=== PATIENT | male | born 1945 | race African-American/Black ===

== ENCOUNTER 2025-01-24 09:20 | Inpatient (IN) | payer OTHER, MEDICARE ==
[~2025-01-24] VITALS: Ht 193 cm; Wt 99.8 kg
[2025-01-24] VITALS (73 sets, daily range): BP systolic 46–121; BP diastolic 24–86; PULSE 53–116; RESP 11–48; TEMP 35.6–36.7; O2SAT 67–100
[2025-01-24 09:56] LABS: HEMATOCRIT. 30.1 % (42.0-52.0); HEMOGLOBIN. 9.6 g/dL (14.0-18.0); MEAN CORPUSCULAR VOLUME 100.2 fL (80.0-94.0); MEAN PLATELET VOLUME 8.6 fl (7.4-10.4); PLATELET 109 x1000/uL (130-400); RED BLOOD CELL COUNT 3.01 mill/uL (4.7-6.1); RED CELL DISTRIBUTION WIDTH 22.3 % (11.6-14.6)
[2025-01-24] MEDS ORDERED: INSULIN GLARGINE 100 UNITS/ML SUBCUT SCH (10:00)
[2025-01-24] MEDS: PIPERACILLIN/TAZO 3.375G/50ML 50 ML IV ONE (10:06)
[2025-01-24] MEDS: SODIUM CHLORIDE 0.9% (SEPSIS BOLUS) IV ONE (10:06)
[2025-01-24 10:12] LABS: DIFFERENTIAL COMMENT 1
[2025-01-24 10:13] LABS: CARBON DIOXIDE 21 mEq/L (21-32); CHLORIDE 97 mEq/L (98-107); POTASSIUM 3.5 mEq/L (3.5-5.1); SODIUM 138 mEq/L (136-145)
[2025-01-24 10:14] LABS: CALCIUM 8.4 mg/dL (8.7-10.4); INR 1.5; PROTHROMBIN TIME 15.6 sec (9.6-11.0)
[2025-01-24 10:18] LABS: CREATININE 2.3 mg/dL (0.6-1.3)
[2025-01-24 10:19] LABS: GLUCOSE 114 mg/dL (70-105); UREA NITROGEN BLOOD 25 mg/dL (9-23)
[2025-01-24 10:20] LABS: ALBUMIN 3.3 g/dL (3.2-4.8)
[2025-01-24 10:21] LABS: ALANINE AMINOTRANSFERASE 14 IU/L (10-49); ASPARTATE AMINOTRANSFERASE 19 IU/L (<34); BILIRUBIN DIRECT 1.4 mg/dL (<=3.0); BILIRUBIN TOTAL 2.9 mg/dL (0.1-1.0)
[2025-01-24 10:27] LABS: LACTIC ACID 9.3 mmol/L (0.4-2.0)
[2025-01-24 10:31] LABS: TROPONIN I HIGH SENSITIVITY 136 ng/L (3.0-53)
[2025-01-24 10:58] LABS: NUCLEATED RED BLOOD CELLS 26 /100 WBC
[2025-01-24 10:59] LABS: ANISOCYTOSIS 2+; PLATELET ESTIMATE DECREASED
[2025-01-24 11:00] LABS: HYPOCHROMASIA 1+
[2025-01-24] MEDS: VANCOMYCIN 1G PREMIX 200 ML IV ONE (11:10)
[2025-01-24] MEDS ORDERED: ETOMIDATE 2MG/ML 10ML VIAL IV ONE (12:57)
[2025-01-24] MEDS ORDERED: IPRATROPIUM/ALBUTEROL 0.5-3(2.5)MG/3ML NEB HHN PRN (13:00)
[2025-01-24] MEDS ORDERED: HYDROCODONE/ACETAMINOPHEN 5/325MG TABLET PO PRN (13:00)
[2025-01-24] MEDS ORDERED: ACETAMINOPHEN 325MG TABLET PO PRN ×2 (13:00)
[2025-01-24] MEDS ORDERED: GUAIFENESIN 200MG/10ML SUGAR FREE UDC PO PRN (13:00)
[2025-01-24] MEDS ORDERED: MAGNESIUM/ALUMINUM HYDROXIDE/SIMETHICONE 30ML UDC PO PRN (13:00)
[2025-01-24] MEDS ORDERED: DOCUSATE SODIUM 100MG CAPSULE PO PRN (13:00)
[2025-01-24] MEDS ORDERED: CLONIDINE 0.1MG TABLET PO PRN (13:00)
[2025-01-24] MEDS ORDERED: ONDANSETRON HCL 4MG/2ML INJ IV PRN (13:00)
[2025-01-24] MEDS ORDERED: MORPHINE SULFATE 2 MG/ML INJ (NOT FOR IM USE) IV PRN (13:00)
[2025-01-24 13:26] LABS: TROPONIN I HIGH SENSITIVITY 146 ng/L (3.0-53)
[2025-01-24] MEDS ORDERED: NALOXONE HCL 0.4MG/ML VIAL IV PRN (13:30)
[2025-01-24] MEDS ORDERED: ASPIRIN 325MG EC TABLET PO ONE (13:30)
[2025-01-24] MEDS ORDERED: LIDOCAINE HCL 1% 10 MG/ML 10ML VIAL ONE (13:41)
[2025-01-24] MEDS: ASPIRIN 325MG TABLET PO NR (13:45)
[2025-01-24] MEDS: VANCOMYCIN 1GM/200ML PMX (BAXTER) IV NR (14:00)
[2025-01-24] MEDS: HYDRALAZINE 20MG/ML VIAL IV NR (14:00)
[2025-01-24] MEDS: HYDRALAZINE HCL 50MG TABLET PO SCH (14:00)
[2025-01-24] MEDS ORDERED: NOREPINEPHRINE 8 MG in DEXT 5% WATER 242 ML IV PRN (15:00)
[2025-01-24] MEDS: NOREPINEPHRINE 8MG/250ML PMX 250 ML IV PRN (15:10)
[2025-01-24 16:15] LABS: BG BASE EXCESS -15.8 mmol/L (-2.0-3.0); BG CARBOXYHEMOGLOBIN 0.4 % (0.5-1.5); BG DEOXYHEMOGLOBIN 3.2 % (0.0-5.0); BG FRACTION INSPIRED OXYGEN 100; BG METHEMOGLOBIN 0.2 % (0.5-1.5); BG OXYGEN SATURATION 96.8 % (94.0-98.0); BG OXYHEMOGLOBIN 96.2 % (94.0-98.0); BG PCO2 24.1 mmHg (35.0-48.0); BG PH 7.236 (7.350-7.450); BG PO2 105.8 mmHg (83.0-108.0); BG SAMPLE SITE LEFT RADIAL; BG VENT MODE MASK - NRB
[2025-01-24] MEDS: BLOOD SUGAR DIAGNOSTIC STRIP TEST SCH (16:30)
[2025-01-24] MEDS: INSULIN LISPRO 100 UNITS/ML SUBCUT SCH ×2 (16:30→20:03)
[2025-01-24] MEDS: NOREPINEPHRINE 8MG/250ML PMX 250ML IV PRN (16:33)
[2025-01-24] MEDS: FUROSEMIDE 40MG/4ML VIAL IV SCH (17:15)
[2025-01-24] MEDS ORDERED: MIDAZOLAM HCL 100 MG in SODIUM CHLORIDE 0.9% 80 ML IV PRN (17:15)
[2025-01-24] MEDS ORDERED: PROPOFOL 10MG/ML 100ML 100 ML IV PRN (17:30)
[2025-01-24] MEDS: PROPOFOL 10MG/ML 100ML 100 ML IV PRN (17:46)
[2025-01-24] MEDS: NOREPINEPHRINE 32 MG in DEXT 5% WATER 218 ML IV PRN (18:10)
[2025-01-24] MEDS: PHENYLEPHRINE 100 MG in DEXT 5% WATER 240 ML IV PRN (18:19)
[2025-01-24] MEDS: DEXTROSE 50% WATER 50ML SYRINGE IV PRN (18:28)
[2025-01-24] MEDS: VASOPRESSIN 20 UNIT in SODIUM CHLORIDE 0.9% 99 ML IV PRN (18:30)
[2025-01-24] MEDS: EPINEPHRINE 10 MG in SODIUM CHLORIDE 0.9% 240 ML IV PRN (18:55)
[2025-01-24 18:58] LABS: BG CARBOXYHEMOGLOBIN 0.8 % (0.5-1.5); BG FRACTION INSPIRED OXYGEN 100; BG HCO3 ACT 8.3 mmol/L (21.0-28.0); BG METHEMOGLOBIN 0.1 % (0.5-1.5); BG OXYGEN SATURATION 87.9 % (94.0-98.0); BG OXYHEMOGLOBIN 87.1 % (94.0-98.0); BG PCO2 42.8 mmHg (35.0-48.0); BG PH 6.905 (7.350-7.450); BG PO2 83.3 mmHg (83.0-108.0); BG SAMPLE SITE LEFT RADIAL; BG TOTAL HEMOGLOBIN 11.9 g/dL (13.5-17.5); BG VENT MODE VENT - AC
[2025-01-24] MEDS: SODIUM BICARBONATE 8.4% 50MEQ/50ML SYR IV NR ×2 (19:10→20:57)
[2025-01-24 19:12] LABS: CREATINE KINASE MB FRACTION 9.6 ng/mL (0.5-3.6)
[2025-01-24 19:23] LABS: ALANINE AMINOTRANSFERASE 69 IU/L (10-49); ALBUMIN 3.4 g/dL (3.2-4.8); ASPARTATE AMINOTRANSFERASE 165 IU/L (<34); BILIRUBIN DIRECT 1.6 mg/dL (<=3.0); BILIRUBIN TOTAL 2.9 mg/dL (0.1-1.0); CREATINE KINASE 687 IU/L (46-171); IRON 26 ug/dL (65-175); PHOSPHORUS 4.7 mg/dL (2.5-4.9)
[2025-01-24 19:24] LABS: PROTEIN TOTAL 5.5 g/dL (6.0-8.3)
[2025-01-24 19:26] LABS: TOTAL IRON BINDING CAPACITY 578 ug/dl (250-425)
[2025-01-24 19:36] LABS: TROPONIN I HIGH SENSITIVITY 273 ng/L (3.0-53)
[2025-01-24 19:49] LABS: FERRITIN 787 ng/mL (22-322)
[2025-01-24 19:50] LABS: FOLIC ACID (FOLATE) SERUM > 20.00 ng/mL (>5.38)
[2025-01-24 20:03] LABS: HEPATITIS B SURFACE ANTIGEN NEGATIVE (Negative)
[2025-01-24 20:23] LABS: HEPATITIS A AB IGM NEGATIVE (Negative)
[2025-01-24 20:24] LABS: HEPATITIS B CORE AB IGM NEGATIVE (Negative); HEPATITIS C AB NON REACTIVE (Neg) (Negative)
[2025-01-24 20:26] LABS: BG BASE EXCESS -22.4 mmol/L (-2.0-3.0); BG CARBOXYHEMOGLOBIN 0.8 % (0.5-1.5); BG DEOXYHEMOGLOBIN 51.7 % (0.0-5.0); BG FRACTION INSPIRED OXYGEN 100; BG HCO3 ACT 10.3 mmol/L (21.0-28.0); BG METHEMOGLOBIN 0.3 % (0.5-1.5); BG OXYGEN SATURATION 47.7 % (94.0-98.0); BG OXYHEMOGLOBIN 47.2 % (94.0-98.0); BG PCO2 56.2 mmHg (35.0-48.0); BG PH 6.883 (7.350-7.450); BG PO2 42.7 mmHg (83.0-108.0); BG TOTAL HEMOGLOBIN 10.9 g/dL (13.5-17.5); BG VENT MODE VENT - AC
[2025-01-24] MEDS ORDERED: DEXTROSE 10% IV SCH (20:30)
[2025-01-24] MEDS ORDERED: WATER IV SCH (20:30)
[2025-01-24] MEDS ORDERED: SODIUM BICARBONATE IV SCH (20:30)
[2025-01-24] MEDS ORDERED: DEXT 10% WATER 1,000 ML IV SCH (20:30)
[2025-01-24] MEDS: SODIUM BICARBONATE 8.4% 50MEQ/50ML SYR IV ONE (20:38)
[2025-01-24 20:48] LABS: VITAMIN B12 SERUM > 2000 pg/mL (211-911)
[2025-01-24] MEDS ORDERED: SACUBITRIL/VALSARTAN 24MG/26MG TABLET PO SCH (21:00)
[2025-01-24] MEDS ORDERED: METOPROLOL TARTRATE 25MG TABLET PO SCH (21:00)
[2025-01-24] MEDS ORDERED: APIXABAN 5 MG TABLET PO SCH (21:00)
[2025-01-24] MEDS: DOPAMINE 800MG PREMIX (DOUBLE) 250 ML IV PRN (21:15)
[2025-01-24] MEDS: SODIUM BICARBONATE 150 MEQ in DEXTROSE 5% WATER 850 ML IV SCH (21:51)
[2025-01-24] MEDS ORDERED: CEFEPIME 2 GM/50 ML IV SCH (22:00)
[2025-01-24] MEDS: EPINEPHRINE 20 MG in SODIUM CHLORIDE 0.9% 480 ML IV PRN (22:09)
[2025-01-24] MEDS: ATORVASTATIN CALCIUM 40MG TABLET PO SCH (22:10)
[2025-01-24 22:36] LABS: TROPONIN I HIGH SENSITIVITY 402 ng/L (3.0-53)
[2025-01-24] MEDS: IPRATROPIUM/ALBUTEROL 0.5-3(2.5)MG/3ML NEB NEB SCH (22:42)
[2025-01-25] VITALS (48 sets, daily range): BP systolic 32–93; BP diastolic 14–64; PULSE 0–60; RESP 17–32; TEMP 34.4–36.4; O2SAT 41–100
[2025-01-25] MEDS: INSULIN LISPRO 100 UNITS/ML SUBCUT SCH
[2025-01-25] MEDS: DEXT 10% WATER 1,000 ML IV SCH (00:26)
[2025-01-25] MEDS: BLOOD SUGAR DIAGNOSTIC STRIP TEST SCH (00:27)
[2025-01-25 00:47] LABS: BG CARBOXYHEMOGLOBIN 0.6 % (0.5-1.5); BG DEOXYHEMOGLOBIN 6.6 % (0.0-5.0); BG FRACTION INSPIRED OXYGEN 100; BG HCO3 ACT 7.9 mmol/L (21.0-28.0); BG METHEMOGLOBIN 0.1 % (0.5-1.5); BG OXYGEN SATURATION 93.4 % (94.0-98.0); BG OXYHEMOGLOBIN 92.7 % (94.0-98.0); BG PCO2 39.8 mmHg (35.0-48.0); BG PH 6.914 (7.350-7.450); BG PO2 97.6 mmHg (83.0-108.0); BG SAMPLE SITE RIGHT FEMORAL; BG TOTAL HEMOGLOBIN 11.1 g/dL (13.5-17.5); BG TOTAL RESPIRATORY RATE 25 b/min; BG VENT MODE VENT - AC
[2025-01-25] MEDS: SODIUM BICARBONATE 8.4% 50MEQ/50ML SYR IV NR (01:47)
[2025-01-25] MEDS: DOBUTAMINE 500MG PREMIX 250 ML IV PRN (01:49)
[2025-01-25] MEDS ORDERED: CEFEPIME 2GM/50ML DUPLEX 50 ML IV SCH (02:00)
[2025-01-25] MEDS: CEFEPIME 2GM/50ML DUPLEX 50 ML IV SCH (03:15)
[2025-01-25 07:04] LABS: BG BASE EXCESS -24.2 mmol/L (-2.0-3.0); BG CARBOXYHEMOGLOBIN 0.3 % (0.5-1.5); BG DEOXYHEMOGLOBIN 13.2 % (0.0-5.0); BG FRACTION INSPIRED OXYGEN 100; BG HCO3 ACT 7.7 mmol/L (21.0-28.0); BG METHEMOGLOBIN 0.1 % (0.5-1.5); BG OXYGEN SATURATION 86.7 % (94.0-98.0); BG OXYHEMOGLOBIN 86.4 % (94.0-98.0); BG PCO2 40.6 mmHg (35.0-48.0); BG PH 6.897 (7.350-7.450); BG PO2 73.7 mmHg (83.0-108.0); BG SAMPLE SITE RIGHT FEMORAL; BG TOTAL HEMOGLOBIN 10.2 g/dL (13.5-17.5); BG VENT MODE VENT - AC
[2025-01-25] MEDS ORDERED: EMPAGLIFLOZIN 10MG TABLET PO SCH (09:00)
[2025-01-25] MEDS ORDERED: CEFEPIME 1GM IN DEXT 5% 50ML IV SCH (09:00)
[2025-01-25] MEDS ORDERED: ASPIRIN 81MG EC TABLET PO SCH (09:00)
[2025-01-25] MEDS ORDERED: AMIODARONE 200MG TABLET PO SCH (09:00)
[2025-01-25] MEDS ORDERED: SPIRONOLACTONE 12.5MG TABLET PO SCH (09:00)
[2025-01-26] MEDS ORDERED: VANCOMYCIN 1.5GM/250ML IV SCH (15:00)
== END 2025-01-25 08:30 | DRG 871 ==
LOC: ER 09:20 → MICUSO 12:25 → EDBEDREQTM 12:32 → EDBEDREQ 12:32 → EDBEDREQSVC 15:25
PROVIDERS: ADMIT Hospitalist; ATTEND Hospitalist
PROC: 0BH17EZ Insertion of Endotracheal Airway into Trachea, Via Natural or Artificial Opening (ICD-10-PCS; principal; 2025-01-24)
PROC: 5A1935Z Respiratory Ventilation, Less than 24 Consecutive Hours (ICD-10-PCS; 2025-01-24)
PROC: 05H633Z Insertion of Infusion Device into Left Subclavian Vein, Percutaneous Approach (ICD-10-PCS; 2025-01-24)
PROC: B547ZZA Ultrasonography of Left Subclavian Vein, Guidance (ICD-10-PCS; 2025-01-24)
DX: A41.9 Sepsis, unspecified organism (principal); G93.41 Metabolic encephalopathy; J96.01 Acute respiratory failure with hypoxia; R65.21 Severe sepsis with septic shock; I21.4 Non-ST elevation (NSTEMI) myocardial infarction; N18.4 Chronic kidney disease, stage 4 (severe); I13.0 Hypertensive heart and chronic kidney disease with heart failure and stage 1 through stage 4 chronic kidney disease, or unspecified chronic kidney disease; C95.90 Leukemia, unspecified not having achieved remission; G45.9 Transient cerebral ischemic attack, unspecified; I48.20 Chronic atrial fibrillation, unspecified; N17.9 Acute kidney failure, unspecified; D61.818 Other pancytopenia; E46 Unspecified protein-calorie malnutrition; E87.21 Acute metabolic acidosis; I43 Cardiomyopathy in diseases classified elsewhere; K92.0 Hematemesis; C90.00 Multiple myeloma not having achieved remission; E11.22 Type 2 diabetes mellitus with diabetic chronic kidney disease; E83.51 Hypocalcemia; Z66 Do not resuscitate; I46.9 Cardiac arrest, cause unspecified; E80.6 Other disorders of bilirubin metabolism; I50.9 Heart failure, unspecified; E87.8 Other disorders of electrolyte and fluid balance, not elsewhere classified; I25.10 Atherosclerotic heart disease of native coronary artery without angina pectoris; Z79.01 Long term (current) use of anticoagulants; I25.2 Old myocardial infarction; Z79.4 Long term (current) use of insulin; Z79.82 Long term (current) use of aspirin; Z79.84 Long term (current) use of oral hypoglycemic drugs; Z79.899 Other long term (current) drug therapy; Z91.85 Personal history of military service; Z92.21 Personal history of antineoplastic chemotherapy; Z68.30 Body mass index [BMI] 30.0-30.9, adult
CPT/HCPCS: 31720; 36415; 36573; 36600; 71045; 76770; 80048; 80076; 82306; 82375; 82550; 82553; 82607; 82728; 82746; 82805; 82962; 83036; 83540; 83550; 83605; 83735; 83880; 84100; 84145; 84484; 85025; 86705; 86709; 87077; 87186; 87340; 93005; 93970; 94003; 94070; 94640; 96374; 96375; 99291; A4606; C1725; J0692; J1265; J2003; J2371; J2543; J2704; J3370; J3490; J7030; J7040; J7050; J7060; J7070